=== PATIENT | female | born 1965 | race American Indian/Alaskan Native ===

== ENCOUNTER 2016-05-12 05:48 | Day surgery (SDC) | payer OTHER ==
[~2016-05-12 05:48] MED LIST: ANCEF/STERILE WATER 2 GM/20 ML 2 GM/20 ML SYRINGE IV NR; APRESOLINE IV PRN; FLAGYL 500 MG/100 ML 500 MG/100 ML BAG IV NR; LACTATED RINGERS 1,000 ML IV SCH; LOVENOX SUB-Q NR; MORPHINE IV PRN; MYLICON PO PRN; NORCO PO PRN; REGLAN IV PRN; TRANSDERM-SCOP TD SCH
[2016-05-12] MEDS ORDERED: NACL BACTERIOSTATIC INFILTRATI ONE (06:15)
[2016-05-12] MEDS ORDERED: NACL 0.9% 1000 ML 1,000 ML ONE (06:19)
[2016-05-12] MEDS ORDERED: FLAGYL 500 MG/100 ML 500 MG/100 ML BAG IV NR (06:30)
[2016-05-12] MEDS ORDERED: ANCEF/STERILE WATER 2 GM/20 ML 2 GM/20 ML SYRINGE IV NR (06:30)
[2016-05-12] MEDS ORDERED: XYLOCAINE MPF 2% ONE (06:31)
[2016-05-12] MEDS ORDERED: ZEMURON IV ONE (06:31)
[2016-05-12] MEDS ORDERED: ROBINUL ONE ×2 (06:31→07:58)
[2016-05-12] MEDS ORDERED: DILAUDID ONE (06:32)
[2016-05-12] MEDS ORDERED: DIPRIVAN 10 MG/ML IV ONE (06:32)
[2016-05-12] MEDS ORDERED: NEOSTIGMINE ONE (06:32)
[2016-05-12] MEDS ORDERED: VERSED IV NR (07:00)
[2016-05-12] MEDS ORDERED: NACL 0.9% 1000 ML 1,000 ML IV SCH (07:00)
[2016-05-12] MEDS ORDERED: PEPCID IV NR (07:00)
--- NOTE | 2016-05-12 07:01 | Anesthesia Day of Surgery ---
Anesthesia Day of Surgery - Day of Surgery Patient Examined: Yes Patient H&P Reviewed: Yes Patient is NPO: Yes
--- NOTE | 2016-05-12 07:03 | Anesthesia Consultation ---
Anesthesia Consult and Med Hx - Airway Anesthetic Teeth Evaluation: Good, Partials (lower) ROM Head & Neck: Adequate Mental/Hyoid Distance: Adequate Mallampati Class: Class II Intubation Access Assessment: Probably Good - Pulmonary Exam CTA: Yes - Cardiac Exam Cardiac Exam: RRR - Pre-Operative Health Status ASA Pre-Surgery Classification: ASA2 Proposed Anesthetic Plan: General - Pulmonary Hx Smoking: Yes (past smoker) - Endocrine Hx Non-Insulin Dependent Diabetes: Yes - Additional Comments Anesthesia Medical History Comments: Pt NPO after MN. Hx of Gastric bypass without anesthesia complications.
[2016-05-12] MEDS ORDERED: XYLOCAINE 1% 20 mL ONE (07:17)
[2016-05-12] MEDS ORDERED: MARCAINE-EPI/PF 0.5%-1:200,000 INFILTRATI ONE ×2 (07:20→08:50)
[2016-05-12] MEDS ORDERED: ZOFRAN IV PRN (07:31)
[2016-05-12] MEDS ORDERED: ZOFRAN ONE (07:48)
[2016-05-12] MEDS ORDERED: DECADRON ONE (07:48)
--- NOTE | 2016-05-12 08:36 | Discharge Summary ---
Providers - Providers Date of discharge: 05/12/16 Attending physician: ADIN CABRERA Hospitalization Condition: Stable Procedures: Diagnostic Lap with repair of mccurdy's space defect Disposition: DISCHARGED TO HOME OR SELFCARE - Discharge Diagnoses (1) Abdominal pain Status: Chronic Qualifiers: Abdominal location: epigastric Qualified Code(s): R10.13 - Epigastric pain Core Measure Documentation - Palliative Care Palliative Care/ Comfort Measures: Not Applicable - Core Measures Any of the following diagnoses?: none Exam - Constitutional Vitals: Temp Pulse Resp BP Pulse Ox 97.8 F 64 18 106/72 97 05/12/16 06:20 05/12/16 06:20 05/12/16 06:20 05/12/16 06:20 05/12/16 06:20 General appearance: Present: no acute distress, well-nourished - EENT Eyes: Present: PERRL, EOM intact ENT: hearing intact, clear oral mucosa, dentition normal - Neck Neck: Present: supple, normal ROM - Respiratory Respiratory effort: normal Respiratory: bilateral: CTA - Cardiovascular Rhythm: regular - Extremities Extremities: no ischemia, No edema Peripheral Pulses: within normal limits - Abdominal General gastrointestinal: Present: soft, non-tender, normal bowel sounds Female genitourinary: Present: normal - Rectal Rectal Exam: deferred - Integumentary Integumentary: Present: clear, warm, dry - Musculoskeletal Musculoskeletal: strength equal bilaterally - Psychiatric Psychiatric: appropriate mood/affect Plan Activity: advance as tolerated Diet: other (bariatric) Wound: keep clean and dry Follow up with: ADIN CABRERA MD [Staff Physician] - 7 Days
[2016-05-12] MEDS ORDERED: MARCAINE-EPI 0.5%-1:200,000 INFILTRATI ONE (08:50)
[2016-05-12] MEDS ORDERED: XYLOCAINE 1% 20 mL INFILTRATI ONE (08:50)
[2016-05-12] MEDS ORDERED: NACL 0.9% IR ONE (08:51)
[2016-05-12] MEDS: DILAUDID IV PRN ×2 (08:55→09:05)
[2016-05-12 10:56] VITALS: BP 102/62
--- NOTE | 2016-05-12 10:57 | Post Anesthesia Evaluation ---
- Post Anesthesia Evaluation Patient Participated: Yes Airway Patent: Yes Stable Respiratory Function: Yes Nausea/Vomiting: No Temp > 96.8F: Yes Pain Manageable: Yes Adequeate Hydration: Yes Anesthesia Complications: No Block Receding Appropriately: Not Applicable Patient on Ventilator: No
[2016-05-13] MEDS ORDERED: LOVENOX SUB-Q SCH (10:00)
== END 2016-05-12 11:31 | disposition home or self-care (01) ==
LOC: OR 05:48
PROVIDERS: ATTEND Specialist
DX: K45.0 Other specified abdominal hernia with obstruction, without gangrene (principal); E11.9 Type 2 diabetes mellitus without complications; Z90.710 Acquired absence of both cervix and uterus; Z98.890 Other specified postprocedural states; Z98.84 Bariatric surgery status; Z87.891 Personal history of nicotine dependence; Z83.3 Family history of diabetes mellitus; Z82.49 Family history of ischemic heart disease and other diseases of the circulatory system; Z84.1 Family history of disorders of kidney and ureter; Z80.9 Family history of malignant neoplasm, unspecified
CPT/HCPCS: 49659; 82962; J0690; J1100; J1170; J1650; J2250; J2405; J2704; J2710; J7030; J7120; J2765